=== PATIENT | male | born 1990 | race Caucasian/White ===

== ENCOUNTER → 2025-02-20 | Outpatient (CLI) | payer BC ==
[2025-02-20 18:06] LABS: Source, Urine Clean Catch
[2025-02-20 18:23] LABS: Red Blood Cells, Urine 0-2 /hpf (0-2); White Blood Cells, Urine Not Seen /hpf (0-5)
== END ==
LOC: LAB SHORT 18:04 → LAB 18:04
PROVIDERS: Internal Medicine
DX: N23 Unspecified renal colic (principal)
CPT/HCPCS: 81015